=== PATIENT | female | born 1950 | race Caucasian/White ===

== ENCOUNTER 2022-11-19 05:11 | Emergency (ER) | payer MEDICARE, OTHER | END 2022-11-19 06:00 | disposition home or self-care (01) | LOC: JD.ED 05:11 | DX: K52.1 Toxic gastroenteritis and colitis (principal); T36.0X5A Adverse effect of penicillins, initial encounter; Z88.8 Allergy status to other drugs, medicaments and biological substances | CPT/HCPCS: 99282; 99283 ==